=== PATIENT | female | born 1940 | race Caucasian/White ===

== ENCOUNTER → 2017-11-15 | Outpatient (CLI) | payer MEDICARE ==
[~2017-11-15] VITALS: Ht 157.5 cm; Wt 60.0 kg
[~2017-11-15] MED LIST: ACIDTAB4 PO; ALBU8I INH; ASPI81 PO; BENZOCAINE 20% ORAL SPR 60 ML CAN OROPHARYNG ONE; BENZOCAINE 20% ORAL SPR 60 ML CAN OROPHARYNG PRN; CHLORHEXIDINE GLUCONATE 2 % 1 PACK (2 CLOTHS) TOPICAL PRN; CINN500C7 PO; CLON1 PO; E-40CAP PO; FISH1000 PO; FLAX10008 PO; HUMIBIDDM PO; INSULIN HUMAN REGULAR 1,000 UNITS/10 ML VIAL SQ PRN; LACTATED RINGER'S 1000 ML IV PRN; LIDOCAINE 2% JELLY 5 ML TUBE TOPICAL PRN; MAGN250T9 PO; METOPROLOL TARTRATE 25 MG TAB PO PRN; MULT1TAB46 PO; OMEP20TA PO; OYST500T77 PO; POVIDONE IODINE 5% (ANTISEPSIS KIT) 4 APPLICATIONS EACH NARE PRN; SIMV20 PO; SODIUM CHLORID 0.9% 500 ML IV PRN; VITA-13 PO; ZITH250T PO
[2017-11-15 07:30] VITALS: BP 116/80; PULSE 102; RESP 20; TEMP 98; O2SAT 96
== END ==
LOC: HEND 07:00
PROVIDERS: ATTEND Internal Medicine Gastroenterology
DX: K21.9 Gastro-esophageal reflux disease without esophagitis (principal); K44.9 Diaphragmatic hernia without obstruction or gangrene
CPT/HCPCS: 91010

== ENCOUNTER 2017-12-20 09:22 | Emergency (ER) | payer OTHER, MEDICARE ==
[~2017-12-20] VITALS: Ht 157.5 cm; Wt 61.2 kg
[~2017-12-20 09:22] MED LIST changes: -BENZOCAINE 20% ORAL SPR 60 ML CAN OROPHARYNG ONE; -BENZOCAINE 20% ORAL SPR 60 ML CAN OROPHARYNG PRN; -CHLORHEXIDINE GLUCONATE 2 % 1 PACK (2 CLOTHS) TOPICAL PRN; -HUMIBIDDM PO; -INSULIN HUMAN REGULAR 1,000 UNITS/10 ML VIAL SQ PRN; -LACTATED RINGER'S 1000 ML IV PRN; -LIDOCAINE 2% JELLY 5 ML TUBE TOPICAL PRN; -METOPROLOL TARTRATE 25 MG TAB PO PRN; -POVIDONE IODINE 5% (ANTISEPSIS KIT) 4 APPLICATIONS EACH NARE PRN; -SODIUM CHLORID 0.9% 500 ML IV PRN; -ZITH250T PO
[2017-12-20 09:29] VITALS: BP 135/76; PULSE 103; RESP 16; TEMP 97.7; O2SAT 98
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
== END 2017-12-20 11:23 | disposition home or self-care (01) ==
LOC: PHED 09:22
DX: K44.9 Diaphragmatic hernia without obstruction or gangrene (principal); S30.1XXA Contusion of abdominal wall, initial encounter; V89.2XXA Person injured in unspecified motor-vehicle accident, traffic, initial encounter
CPT/HCPCS: 74176; 99283

== ENCOUNTER → 2018-03-04 | Outpatient (CLI) | payer MEDICARE ==
--- NOTE | 2018-03-06 09:52 | RSPPFT ---
DATE OF PROCEDURE: 03/04/18 COMMENTS: Spirometry with FVC of 2.4 at 97% of predicted, FEV1 of 1.9 at 102%, FEV1/FVC ratio is normal. Flow is normal at FEF 25, FEF 50, FEF 75 and FEF 25-75. There is no response after bronchodilator treatment. Lung volumes show residual volume is decreased. TLC is decreased. Diffusion capacity is normal. Flow volume loop indicates a normal pattern. IMPRESSION: 1. Normal spirometry. 2. No response after bronchodilator treatment. 3. Decreased lung volumes indicative of early restrictive lung disease. 4. Normal diffusion capacity.
== END ==
LOC: PHRSP 08:27
PROVIDERS: ATTEND Specialist
DX: J45.20 Mild intermittent asthma, uncomplicated (principal)
CPT/HCPCS: 94060; 94726; 94729

== ENCOUNTER 2018-06-11 09:47 | Observation (INO) ==
[2018-06-11] MEDS ORDERED: Chlorhexidine Gluconate 2% 1 Pack (2 Cloths) TOPICAL SCH (10:30)
[2018-06-11] MEDS ORDERED: Metoprolol Tartrate 25 MG Tablet PO SCH (10:30)
[2018-06-11] MEDS ORDERED: Vancomycin Inj 1,000 MG in Sodium Chlor 0.9% Inj 250 ML IV.SIG SCH (11:00)
[2018-06-11] MEDS ORDERED: Sodium Chlor 0.9% Inj 500 ML IV.SIG SCH (11:00)
[2018-06-11] MEDS ORDERED: Lidocaine PF 1% Inj 5 ML Syringe INFILTRATN ONE (12:00)
[2018-06-11] MEDS ORDERED: Bupivacaine/Epinephrine Inj 0.25% 50 ML Vial ONE (12:15)
[2018-06-11] MEDS ORDERED: Post-op Orders (for Pharmacy) OTHER ONE (15:10)
[2018-06-11] MEDS ORDERED: Naloxone Inj 0.4 MG/ML Vial IV.PUSH PRN (15:10)
[2018-06-11] MEDS ORDERED: Sugammadex Inj 200 MG/2 ML Vial IV.PUSH ONE (15:11)
--- NOTE | 2018-06-11 15:16 | P.OP ---
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 Procedure in detail: The patient was taken to the operating room and placed in supine position. Gen. endotracheal anesthesia was induced and the abdomen was prepped and draped in usual sterile fashion. A surgical timeout was performed to verify correct patient procedure and site. Local anesthetic was injected in skin and subcutaneous tissue in the upper midline 15 cm inferior to the xiphoid and a 12 mm incision made which was just superior to the umbilicus. A 5 mm Optiview trocar was inserted under laparoscopic visualization. The abdomen was insufflated to 15 mmHg with CO2 gas which the patient tolerated well. The patient was then placed in steep reverse Trendelenburg position. In the right upper lateral abdomen a 5 mm port was placed and the marycarmen flex liver retractor inserted and used to elevate the left lobe of the liver and expose the hiatus. In the right upper abdomen and 8 mm robotic port was placed. In the left upper abdomen mid clavicular line an 8 mm robotic port was placed. In the left lateral abdomen a 5 mm marketing administrative assistant port was placed. The initial supraumbilical port was changed to a 12 mm port. Three 0 silk sutures, one ray bella, and a Fawad drain were placed into the abdominal cavity. The laparoscopic tower was removed. The da Mary robot was docked. The surgeon then operated from the robotic console. The Harmonic scalpel was used to divide the gastrohepatic ligament. There was noted to be a large paraesophageal hernia with approximately one half of the stomach intrathoracic. Therefore, initially the hernia sac was grasped in the mediastinum and pulled caudad. The hernia sac was dissected circumferentially with the harmonic scalpel taking care to avoid the esophagus and the pleura. The right sola of the diaphragm was identified and the dissection carried out posteriorly to where the diaphragm fibers cross. The fundus was retracted medially and the left sola the diaphragm identified. The grasper was placed posterior to the stomach from right to left. A Fawad drain was encircled around the upper fundus. The stomach was able to be retracted inferiorly with no trauma and dissection was completed in the mediastinum as well as along the lateral edges of the enlarged hiatus. The attachments of the angle of his were divided. The stomach and over 2cm of esophageal easily sat in the abdomen without any tension. Three 0 silk figure of eight sutures were then used to close the moderate-large sized diaphragmatic defect. There was good hemostasis in the operative field and the marycarmen flex retractor was removed. All needles, Fawad drain, and Ray-Bella were removed from the abdomen and counted. Trocars were then removed and the abdomen allowed to desufflate. The fascia at the 12mm port site was closed with 0 vicryl suture. Skin was closed with subcuticular 4-0 monocryl and dermabond. The patient tolerated the procedure well and was taken to PACU in stable condition.
[2018-06-11] MEDS ORDERED: Morphine Inj 4 MG/ML Vial ONE (15:48)
[2018-06-11] MEDS ORDERED: fentaNYL Citrate Inj 100 MCG/2 ML Ampul ONE (15:48)
[2018-06-11] MEDS ORDERED: *morphine SULFATE 4 MG/ML PERIprocedure ONLY ONE (15:57)
[2018-06-11] MEDS: Ketorolac Inj 30 MG/ML (IVP) Vial IV.PUSH SCH ×3 (16:15→22:52)
[2018-06-11] MEDS: Sod Chloride 0.9% Inj 1,000 ML IV.CONT SCH ×2 (16:17→22:54)
[2018-06-11] MEDS ORDERED: *morphine SULFATE 10 MG/ML PERIprocedure ONLY ONE ×2 (16:41→16:55)
[2018-06-12] MEDS: Ketorolac Inj 30 MG/ML (IVP) Vial IV.PUSH SCH ×4 (05:50→23:12)
[2018-06-12] MEDS: Sod Chloride 0.9% Inj 1,000 ML IV.CONT SCH ×2 (05:51→20:19)
[2018-06-12] MEDS: Pantoprazole Sodium 20 MG DR Tablet PO SCH (09:02)
--- NOTE | 2018-06-12 16:58 | P.DCO ---
- Physical Therapy Order: Evaluate and treat, Improve ambulation, Strength and gait training - Certification I have seen patient Ria Washington on 06/12/18. My clinical findings support the need for the requested home health care services because: Limited mobility due to disease progression, Deconditioned with increased weakness I certify that my clinical findings support that this patient is homebound because: Post-op weakness
--- NOTE | 2018-06-12 17:00 | P.PNGS ---
Subjective Interval history: C/o shivering. Has been weak when ambulating. PT recs home PT and wheeled walker. Tolerating fulls. Nausea this am better now. Physical Exam Vital signs: Vital Signs 06/11/18 17:00 06/11/18 17:15 06/11/18 17:30 Temperature Pulse Rate 93 H 70 67 Respiratory Rate 22 18 15 Blood Pressure 121/71 118/64 135/70 Pulse Oximetry 100 100 96 06/11/18 17:45 06/11/18 18:00 06/11/18 18:15 Temperature 97.8 F Pulse Rate 92 H 87 72 Respiratory Rate 15 15 18 Blood Pressure 116/75 121/72 110/67 Pulse Oximetry 98 96 06/11/18 20:00 06/12/18 00:00 06/12/18 08:00 Temperature 98.3 F 97.2 F L 97.4 F L Pulse Rate 76 73 83 Respiratory Rate 17 17 18 Blood Pressure 126/74 133/73 134/68 Pulse Oximetry 94 L 97 94 L 06/12/18 12:00 Temperature 97.6 F Pulse Rate 75 Respiratory Rate 18 Blood Pressure 114/62 Pulse Oximetry 92 L Intake & Output 06/11/18 06/12/18 06/12/18 18:59 06:59 18:59 Intake Total 1970 / 1970 1000 / 1000 Output Total 560 / 560 350 / 350 Balance 1410 / 1410 650 / 650 Weight 57 kg 60.5 kg Intake: IV 350 / 350 1000 / 1000 NS Inj 1,000 ML @ 70 mls/hr IV. 1000 / 1000 CONT .[id number] [facility] Rx#:[id number] Ofirmev Inj 1,000 mg In 100 ml 100 / 100 @ 400 mls/hr IV.SIG [employer]IED [employer] [facility] Rx#:[id number] Vancomycin Inj 1,000 MG In NS 250 / 250 Inj 250 ML @ 250 mls/hr IV.SIG ALLIED HEALTH TEACHER [facility] Rx#:[id number] Oral 120 / 120 Anesthesia Amount 1500 / 1500 Output: Urine 350 / 350 Estimated Blood Loss 10 / 10 Urine Amount (Catheter) 550 / 550 Indwelling Urethral Catheter 550 / 550 Other: Weight On Admission 57 kg Narrative: NAD Abd: soft, inc c/d/i. - Urinary Catheter Management Indwelling Urethral Catheter Cath placed during this visit: yes, but has since been removed by the nurse Reason for continuing: Not indwelling catheter Insertion date: 06/11/18 Insertion time: 13:25 Removal date: 06/12/18 Removal time: 09:10 Assessment and Plan - Assessment (1) Paraesophageal hernia Code(s): K44.9 - Diaphragmatic hernia without obstruction or gangrene Status: Acute Plan: POD 1 s/p robot assisted repair. Stable. Nausea this am. Weak. Cont fulls. Continue ambulation with assistance. Likely dc tomorrow with [facility] PT.
[2018-06-13] MEDS: Ketorolac Inj 30 MG/ML (IVP) Vial IV.PUSH SCH (04:57)
--- NOTE | 2018-06-13 07:58 | P.DS ---
Date of admission: 06/11/18 09:47 Primary care physician: Gayla Gonzales MD Brief History from admission: 77 yo F with symptomatic large paraesophageal hernia presents for repair. DS: Diagnosis - Discharge Diagnosis (1) Paraesophageal hernia Status: Acute DS: Medications - Discharge Medications Prescriptions: ketorolac 10 mg PO Q8HR PRN #12 tab PRN Reason: Acute Pain DS: Summary Hospital Course: POD 1 she had some nausea and weakness. PT consulted and home PT recommended. Nausea improved and she is tolerating fulls. Her weakness and instability is improving as well. - Time Spent with Patient Total time spent providing and/or coordinating discharge services: Less than 30 minutes - Quality: VTE Deep Vein Thrombosis/Pulmonary Embolism Present on Admission: No Exam Vital signs: Vital Signs 06/12/18 08:00 06/12/18 12:00 06/12/18 20:00 Temperature 97.4 F L 97.6 F 97.8 F Pulse Rate 83 75 89 Respiratory Rate 18 18 17 Blood Pressure 134/68 114/62 119/65 Pulse Oximetry 94 L 92 L 96 06/13/18 00:00 Temperature 97.7 F Pulse Rate 84 Respiratory Rate 17 Blood Pressure 116/58 L Pulse Oximetry 93 L Intake & Output 06/12/18 06/13/18 06/13/18 18:59 06:59 18:59 Intake Total 1000 / 1000 1900 / 1900 Balance 1000 / 1000 1900 / 1900 Weight 60.5 kg Intake: IV 1000 / 1000 1000 / 1000 NS Inj 1,000 ML @ 70 mls/hr IV. 1000 / 1000 CONT .[id number] [facility] Rx#:[id number] LR 1000 mL Inj 1,000 ML @ 30 1000 / 1000 mls/hr IV.SIG .Q24H [facility] Rx#: [id number] Oral 900 / 900 Other: # Voids 3 Narrative: NAD Abd: [employer] c/d/i Results Procedures completed during hospitalization: Robot assisted laparoscopic paraesophageal hernia repair Discharge Plan - Discharge Disposition Patient Disposition: W/Home Health Service - Discharge Condition Condition: Good - Discharge Order Discharge Orders: Discharge Order (Routine); Ordered 06/13/18 Ordered By: Reji Rodriguez - Physicians Team Primary Care Provider: Gayla Gonzales Attending Provider: Reji Rodriguez - Rxs /Orders / Referrals /Forms Prescriptions: New ketorolac 10 mg Tablet 10 mg PO Q8HR PRN (Reason: Acute Pain) Qty: 12 RF: 0 Continue albuterol sulfate [Proventil HFA] 90 mcg/actuation Hfa Aerosol Inhaler 2 puff INHALATION Q6H PRN (Reason: Shortness Of Breath) aspirin [Aspirin Low Dose] 81 mg Tablet,Delayed Release (Dr/Ec) 81 mg PO DAILY calcium carbonate [Calcium 600] 600 mg calcium (1,500 mg) Tablet 600 mg PO DAILY cholecalciferol (vitamin D3) [Vitamin D3] 1,000 unit Capsule 1,000 unit PO DAILY cyanocobalamin (vitamin B-12) [Vitamin B-12] 1,000 mcg Tablet 1,000 mcg PO DAILY Lactobacillus acidophilus [Acidophilus] Capsule 10,000 mmu cells PO DAILY magnesium 250 mg Tablet 250 mg PO DAILY [id number] K [Adults Multivitamin] 18 mg iron-400 mcg-25 mcg Tablet 1 tab PO DAILY omeprazole 20 mg PO DAILY simvastatin 20 mg Tablet 20 mg PO QPM temazepam 7.5 mg Capsule 7.5 mg PO HS PRN (Reason: Insomnia) Ambulatory Orders / Order Sets / DME: Walker With Front Wheels (1 each) (Routine) Location: Determined by Patient Ordered By: Reji Rodriguez Referrals: Gayla Gonzales MD [Primary Care Provider] - See Instructions Reji Rodriguez MD [GENERAL SURGERY] - See Instructions
[2018-06-13] MEDS: Pantoprazole Sodium 20 MG DR Tablet PO SCH (09:06)
[2018-06-13 09:52] VITALS: BP 125/60; PULSE 71; RESP 18; TEMP 98; O2SAT 95
== END 2018-06-13 11:13 | disposition home health service (06) ==
LOC: HSDI 09:47 → INTOOBSV 09:47 → N07 18:36
PROVIDERS: ADMIT Surgery; ATTEND Surgery